=== PATIENT | male | born 1940 | race Caucasian/White ===

== ENCOUNTER → 2017-08-24 | Outpatient (CLI) | payer MEDICARE ==
[~2017-08-24] MED LIST: ACCUPRIL10 MG PO; ALEVE220 MG; ASPIR 8181 M1 PO; CENTRUM SILVER1 EAC2 PO; COREG3.125 MG PO; EFFIENT10 MG PO; FLEXERIL PO; LIPITOR40 MG PO; NORCO 5-325 TA1 EACH PO; NORVASC5 MG PO; QUINU5 PD; VITAMIN D1000 UNI1 PO; VYTORIN
== END ==
LOC: SLEEPLAB 09:42
DX: G47.33 Obstructive sleep apnea (adult) (pediatric) (principal)

== ENCOUNTER 2017-12-09 22:51 | Inpatient (IN) | payer MEDICARE, OTHER ==
[~2017-12-09] VITALS: Ht 172.7 cm; Wt 105.2 kg
--- NOTE | ~2017-12-09 | EKG ---
[address] [address] ELECTROCARDIOGRAM REPORT Name: ANDREW WELLER ANJELICA Room #: 218-P ADM IN M.R.#: [id number] Admission: 12/10/17 Attend Phys: Home Lind MD Discharge: Date of : 44 Report #: [id number] THIS REPORT FOR: //name// [facility] ED Test Date: 2017-12-09 Test Time: 23:27:34 Pat Name: ANDREW WELLER Department: Room: Gender: M Tax Compliance Manager: LEONOR : 1940 Requested By: Deann Monterroso Order Number: [id number] MD: Olman Eddy Measurements Intervals [place] Rate: 54 P: 35 [place]: 171 QRS: -16 QRSD: 114 T: -6 QT: 429 QTc: 407 Interpretive Statements Sinus rhythm Left ventricular hypertrophy Borderline T abnormalities, inferior leads Compared to ECG 04/17/2015 08:10:55 Left ventricular hypertrophy now present T-wave abnormality now present Myocardial infarct finding no longer present Electronically Signed On 12-10-2017 8:05:14 CDT by Olman Eddy [email or web address] <ELECTRONICALLY SIGNED> By: Olman Eddy MD 12/10/17 0805 Olman Eddy MD /EPI
--- NOTE | ~2017-12-09 | HC ---
[facility] [place] [address] CONSULTATION Name: ANDREW WELLER Room #: 218-P [facility] IN M.R.#: [id number] Admission: 12/10/17 Attend Phys: Home Lind MD Discharge: Date of : 44 Report #: [id number] THIS REPORT FOR: //name// CC: Ronal Lind PRIMARY CARE PHYSICIAN: Vivek Gillespie MD TRANSFER IRON OPERATOR: Ronal Malone MD CHIEF COMPLAINT: Bilateral wrist pain. HISTORY OF PRESENT ILLNESS: The patient is a 77-year-old male with a history of prior coronary artery disease followed by Dr. Malone in our practice. He was watching TV last night when he had sudden onset of right wrist pain. His left wrist has been hurting him as he just had recent carpal tunnel surgery. It radiated somewhat up to his elbow and shoulder. He never had chest pain. However, his symptoms were relieved with nitroglycerin, so he came in the Emergency Room. His ECG demonstrated a sinus rhythm. There are Q-waves in the inferior wall with T-wave inversion as he has a prior history of inferior MO. His first troponin is normal and this morning he is asymptomatic for chest, arm, shoulder, neck or jaw discomfort. There were some components of his presentation, which were similar to his MO in 2015, which is why he came in to the Emergency Room. Overall, has been feeling well, though he denies exertional shortness of breath, chest, neck or jaw discomfort. Denies palpitations. He presents in sinus rhythm. He has been compliant with medical therapy, but currently he is on aspirin alone. PAST MEDICAL HISTORY: Significant for acute inferior MO, treated with a drug-eluting stent in 2014. He completed his course of Effient and now is taking aspirin alone. He cannot recall when his last stress test has been, but he reports he has had 2 of them since his MO. He has a history of degenerative joint disease, hypertension, hyperlipidemia. MEDICATIONS: Include Flexeril 10 mg p.o. t.i.d., aspirin 81 mg daily, atorvastatin 40 mg daily, Coreg 3.125 mg p.o. b.i.d. and quinapril 10 mg daily. PAST SURGICAL HISTORY: PCI and left-sided carpal tunnel surgery. SOCIAL HISTORY: He is a former smoker. Quit more than 5 years ago. He does not drink frequently. ALLERGIES: No known drug allergies. [address] [address] CONSULTATION Name: ANDREW WELLER Room #: 218-P ADM IN .R.#: [id number] Admission: 12/10/17 Attend Phys: Home Lind MD Discharge: Date of : 44 Report #: [id number] REVIEW OF SYSTEMS: GASTROINTESTINAL: No abdominal pain, nausea, vomiting. NEUROLOGIC: Denies slurred speech, numbness or weakness. Denies facial numbness, visual changes. Denies any seizures. THROAT: Denies any dysphagia. GASTROINTESTINAL: No abdominal pain, nausea, constipation. GENITOURINARY: No dysuria or hematuria. SKIN: No rashes. MUSCULOSKELETAL: Positive joint pain. He is still having wrist pain from his left-sided culprit tunnel surgery. PHYSICAL EXAMINATION: VITAL SIGNS: Blood pressure is 164/79, pulse 59, temperature is 36.6, O2 sats 98%. GENERAL: He is a pleasant elderly male. He is alert and oriented, no apparent distress. NECK: Supple. No jugular venous distention. CARDIOVASCULAR: Regular. I cannot hear a murmur, rub or gallop. NEUROLOGIC: There are no focal deficits. PSYCHIATRIC: The patient has appropriate mood and affect. LABORATORY DATA: ECG shows a sinus rhythm, Q-waves in inferior leads with T-wave inversion. Sodium is 138, potassium is 4.2, BUN is 37, creatinine is 1.2, GFR is 59. Troponin I is 0.04 x 2 sets. Chest x-ray shows no acute cardiopulmonary process. IMPRESSION: 1. Arm pain. His symptoms are atypical for angina, but there is some component that is similar to his prior myocardial infarction. He is ruling out for an acute myocardial infarction. He is asymptomatic this morning and his ECG abnormality is likely baseline given his prior inferior myocardial infarction. If his troponin is normal, I think he can be evaluated as an outpatient with followup with Dr. Malone who currently is out of town, but I do not think at this time that another stress test is necessary. 2. Coronary artery disease. I would like to continue with medical therapy, aspirin, beta blockers and nitrates. 3. Hypertension. His blood pressure is elevated today. I will increase his lisinopril dose on discharge. 4. Hyperlipidemia. Continue with statin. By: [id number] Rene Bunn MD, FACC /nt
--- NOTE | ~2017-12-09 | EKG ---
[address] [address] ELECTROCARDIOGRAM REPORT Name: ANDREW WELLER ANJELICA Room #: 218-P ADM IN M.R.#: [id number] Admission: 12/10/17 Attend Phys: Home Lind MD Discharge: Date of : 44 Report #: [id number] THIS REPORT FOR: //name// [facility] Test Date: 2017-12-10 Test Time: 07:33:16 Pat Name: ANDREW WELLER Department: Room: 218 P Gender: M Event Management Consultant: SIOMARA : 1940 Requested By: Daya Welsh Order Number: [id number] MD: Olman Eddy Measurements Intervals [place] Rate: 56 P: 26 [place]: 163 QRS: -20 QRSD: 124 T: -13 QT: 434 QTc: 419 Interpretive Statements Sinus rhythm Atrial premature complex Probable left atrial enlargement Left ventricular hypertrophy Borderline T abnormalities, inferior leads Compared to ECG 04/17/2015 08:10:55 Atrial premature complex(es) now present Left ventricular hypertrophy now present T-wave abnormality now present Myocardial infarct finding no longer present Electronically Signed On 12-10-2017 8:06:57 CDT by Olman Eddy [email or web address] <ELECTRONICALLY SIGNED> By: Olman Eddy MD 12/10/1706 2 Olman Eddy MD /EPI
[2017-12-09 23:21] VITALS: BP 155/81
[2017-12-10] VITALS (7 sets, daily range): BP systolic 153–190; BP diastolic 59–79
[2017-12-10 00:46] LABS: ABSOLUTE NEUTROPHILS 3.6 thou/uL (1.4-8.2); BASOPHILS 0.5 % (0.0-2.0); EOSINOPHILS 3.3 % (0.0-3.0); HEMOGLOBIN 12.1 gm/dL (14.0-18.0); LYMPHOCYTES 35.7 % (24.0-44.0); MCH 33.9 pg (26.0-34.0); MCHC 34.4 g/dL (28.0-37.0); MCV 98.5 fL (80.0-100.0); MONOCYTES 10.1 % (1.0-8.0); PLATELET COUNT 146 thou/uL (150-400); POLYS 50.4 % (36.0-66.0); RBC 3.55 mil/uL (4.50-6.00); RDW 12.6 % (10.5-14.5); WBC 7.2 thou/uL (4.0-11.0)
[2017-12-10 00:53] LABS: ANION GAP 7 mmol/L (7-16); BUN 37 mg/dL (7-18); CALCIUM 9.7 mg/dL (8.5-10.1); CHLORIDE 103 mmol/L (98-107); CO2 28 mmol/L (21-32); CREATININE 1.2 mg/dL (0.7-1.3); GLUCOSE 119 mg/dL (74-106); POTASSIUM 4.2 mmol/L (3.5-5.1); SODIUM 138 mmol/L (136-145)
[2017-12-10 01:02] LABS: TROPONIN-I < 0.04 ng/mL (<0.06)
[2017-12-10 08:09] LABS: CHOLESTEROL 166 mg/dL (<200); HDL CHOLESTEROL 29 mg/dL (>40); LDL CHOLESTEROL 95 mg/dL (<100); TC:HDL 5.7 Ratio (Not establshd); TRIGLYCERIDE 211 mg/dL (<150); VLDL 42 mg/dL (<40)
[2017-12-10] MEDS ORDERED: ACCUPRIL10 MG PO (12:43)
[2017-12-10 16:12] LABS: GLYCOHEMOGLOBIN (HGB A1C) 5.5 % (4.8-5.6)
== END 2017-12-10 13:45 | disposition home or self-care (01) | DRG 556 ==
LOC: ER 22:51 → 2N 12-10 01:58 → EROBS 12-10 01:58 → 2N 12-10 02:31 → ENTRNSPT 12-10 13:39 → EDTRNSPTSTS 12-10 13:41 → 2N 12-10 13:45
PROVIDERS: Emergency Medicine; Nurse Practitioner Acute Care
DX: M79.602 Pain in left arm (principal); M79.601 Pain in right arm; R07.89 Other chest pain; I25.10 Atherosclerotic heart disease of native coronary artery without angina pectoris; M19.90 Unspecified osteoarthritis, unspecified site; E78.5 Hyperlipidemia, unspecified; I10 Essential (primary) hypertension; E78.00 Pure hypercholesterolemia, unspecified; K21.9 Gastro-esophageal reflux disease without esophagitis; I25.2 Old myocardial infarction; Z95.5 Presence of coronary angioplasty implant and graft; Z82.49 Family history of ischemic heart disease and other diseases of the circulatory system; Z83.6 Family history of other diseases of the respiratory system; Z87.891 Personal history of nicotine dependence
CPT/HCPCS: 10081

== ENCOUNTER → 2019-01-09 | Outpatient (CLI) | payer MEDICARE, OTHER | LOC: RAD 08:57 | DX: R91.8 Other nonspecific abnormal finding of lung field (principal); R06.02 Shortness of breath ==

== ENCOUNTER → 2019-01-16 | Outpatient (CLI) | payer MEDICARE | LOC: RAD 10:47 | DX: R06.02 Shortness of breath (principal) ==

== ENCOUNTER → 2019-07-05 | Outpatient (CLI) | payer MEDICARE | LOC: CAT 09:22 | DX: S20.221A Contusion of right back wall of thorax, initial encounter (principal); S00.93XA Contusion of unspecified part of head, initial encounter; M51.34 Other intervertebral disc degeneration, thoracic region; M25.711 Osteophyte, right shoulder; M19.011 Primary osteoarthritis, right shoulder; W19.XXXA Unspecified fall, initial encounter; Y93.89 Activity, other specified; Y92.89 Other specified places as the place of occurrence of the external cause; Y99.8 Other external cause status ==

== ENCOUNTER 2019-12-28 10:15 | Inpatient (IN) | payer MEDICARE | END 2019-12-31 23:30 | disposition short-term general hospital (02) | DRG 871 | LOC: ER 10:15 → EROBS 13:09 → 3W 14:56 | PROVIDERS: ADMIT Hospitalist | DX: A41.9 Sepsis, unspecified organism (principal); N17.0 Acute kidney failure with tubular necrosis; J18.9 Pneumonia, unspecified organism; K57.92 Diverticulitis of intestine, part unspecified, without perforation or abscess without bleeding; M62.82 Rhabdomyolysis; I45.10 Unspecified right bundle-branch block; I10 Essential (primary) hypertension; E78.00 Pure hypercholesterolemia, unspecified; E78.5 Hyperlipidemia, unspecified; K21.9 Gastro-esophageal reflux disease without esophagitis; I25.10 Atherosclerotic heart disease of native coronary artery without angina pectoris; Z20.828 Contact with and (suspected) exposure to other viral communicable diseases; K59.00 Constipation, unspecified; Z85.820 Personal history of malignant melanoma of skin; I25.2 Old myocardial infarction; Z79.82 Long term (current) use of aspirin; Z79.899 Other long term (current) drug therapy; Z87.891 Personal history of nicotine dependence ==